=== PATIENT | female | born 1985 | race Caucasian/White ===

== ENCOUNTER 2016-03-04 13:57 | Emergency (ER) | payer BC, OTHER ==
[~2016-03-04] VITALS: Ht 167.6 cm; Wt 111.1 kg
--- NOTE | ~2016-03-04 | EKG ---
[address] [address] ELECTROCARDIOGRAM REPORT Name: APOLLO MERRITT Room #: [facility]P [facility]USMichael#: [id number] Admission: 03/04/16 Attend Phys: Discharge: 03/04/16 Date of : 87 Report #: [id number] THIS REPORT FOR: //name// 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
[~2016-03-04 13:57] MED LIST: NOHOMEMEDICATIONS; ZOFRAN ODT4 MG PO
[2016-03-04] MEDS ORDERED: LEVOTHYROXIN0.125 M1 PO (14:19)
[2016-03-04] MEDS ORDERED: IMITREX 25 MG T25 M1 PO (14:21)
[2016-03-04 14:43] LABS: HEMOGLOBIN 13.9 gm/dL (12.0-15.0); MCH 30.9 pg (26.0-34.0); MCHC 33.8 % (28.0-37.0); MCV 91.3 fL (80.0-100.0); PLATELET COUNT 186 thou/uL (150-400); RBC 4.49 mil/uL (4.20-5.00); RDW 13.3 % (10.5-14.5); WBC 3.5 thou/uL (4.0-11.0)
[2016-03-04 14:47] LABS: MANUAL DIFF YES
[2016-03-04 14:59] LABS: CREATININE 0.8 mg/dL (0.6-1.3); POTASSIUM 3.5 mmol/L (3.5-5.1)
[2016-03-04 15:00] LABS: ALBUMIN 3.8 g/dL (3.4-5.0); CALCIUM 8.5 mg/dL (8.5-10.1); TOTAL BILIRUBIN 0.3 mg/dL (<0.1-1.0); TOTAL PROTEIN 7.2 g/dL (6.4-8.2)
[2016-03-04 15:07] LABS: ABSOLUTE NEUTROPHILS 1.7 thou/uL (1.4-8.2); PLATELET ESTIMATE NORMAL; TOTAL CELL COUNT 100
[2016-03-04 15:12] VITALS: BP 113/77
[2016-03-04] MEDS ORDERED: TAMIFLU75 MG PO (15:25)
== END 2016-03-04 15:33 | disposition home or self-care (01) ==
LOC: ER 13:57
PROVIDERS: Emergency Medicine
DX: J10.1 Influenza due to other identified influenza virus with other respiratory manifestations (principal); R55 Syncope and collapse; J45.909 Unspecified asthma, uncomplicated; E03.9 Hypothyroidism, unspecified; Z88.6 Allergy status to analgesic agent